=== PATIENT | male | born 1940 | race Two or more races ===

== ENCOUNTER 2020-09-21 09:57 | Outpatient (CLI) | payer OTHER | END 2020-09-21 10:03 | disposition home or self-care (01) | LOC: TOM 09:57 | PROVIDERS: ATTEND Psychiatry & Neurology Clinical Neurophysiology | DX: G93.89 Other specified disorders of brain (principal); I63.39 Cerebral infarction due to thrombosis of other cerebral artery ==

== ENCOUNTER 2020-11-27 16:12 | Emergency (ER) | payer OTHER ==
[~2020-11-27] VITALS: Ht 165.1 cm; Wt 54.4 kg
[2020-11-27] MEDS ORDERED: SERTRALINE HCL50 MG PO (16:30)
[2020-11-27] MEDS ORDERED: SIMVASTATIN40 MG (16:30)
[2020-11-27] MEDS ORDERED: ATENOLOL50 MG (16:30)
[2020-11-27] MEDS ORDERED: LISINOPRIL40 MG (16:30)
[2020-11-27] MEDS ORDERED: EZETIMIBE10 MG PO (16:30)
[2020-11-27] MEDS ORDERED: DONEPEZIL HCL23 MG PO (16:31)
== END 2020-11-27 22:32 | disposition home or self-care (01) ==
LOC: ER 16:12
DX: N39.0 Urinary tract infection, site not specified (principal); E86.0 Dehydration; K52.89 Other specified noninfective gastroenteritis and colitis; Z03.818 Encounter for observation for suspected exposure to other biological agents ruled out

== ENCOUNTER 2022-08-04 10:32 | Emergency (ER) | payer OTHER ==
[~2022-08-04] VITALS: Ht 160 cm; Wt 57.6 kg
[~2022-08-04 10:32] MED LIST: ATENOLOL50 MG; DONEPEZIL HCL23 MG PO; EZETIMIBE10 MG PO; LISINOPRIL40 MG; SERTRALINE HCL50 MG PO; SIMVASTATIN40 MG
[2022-08-04] MEDS ORDERED: CLONAZEPAM0.5 MG PO (10:50)
[2022-08-04] MEDS ORDERED: FOLIC ACID1 MG PO (10:51)
== END 2022-08-04 13:33 | disposition home or self-care (01) ==
LOC: ER 10:32
DX: S43.401A Unspecified sprain of right shoulder joint, initial encounter (principal); W06.XXXA Fall from bed, initial encounter; Y93.9 Activity, unspecified; Y92.013 Bedroom of single-family (private) house as the place of occurrence of the external cause; I10 Essential (primary) hypertension; S00.93XA Contusion of unspecified part of head, initial encounter; S33.9XXA Sprain of unspecified parts of lumbar spine and pelvis, initial encounter

== ENCOUNTER 2023-12-30 14:43 | Emergency (ER) | payer OTHER ==
[~2023-12-30] VITALS: Ht 152.4 cm; Wt 49.9 kg
[~2023-12-30 14:43] MED LIST changes: +CLONAZEPAM0.5 MG PO; +FOLIC ACID1 MG PO
[2023-12-30] MEDS ORDERED: SIMETHICONE 125 MG CAPSULE PO ONE ×2 (17:30→17:45)
[2023-12-30 18:18] LABS: ALBUMIN 3.7 gm/dL (3.4-5.0); BILIRUBIN TOTAL 0.36 mg/dL (0.3-1.2); CALCIUM 8.9 mg/dL (8.5-10.1); CREATININE SERUM 1.06 mg/dL (0.70-1.30); GFR 66.4; GLOBULINA 3.1 G/DL (2.4-3.5); POTASSIUM 4.21 mEq/L (3.5-5.1); TOTAL PROTEIN 6.8 gm/dL (6.4-8.2)
== END 2023-12-30 20:39 | disposition home or self-care (01) ==
LOC: ER 14:43
PROVIDERS: Emergency Medicine
DX: R14.2 Eructation (principal); R14.3 Flatulence; G30.8 Other Alzheimer's disease; F02.80 Dementia in other diseases classified elsewhere, unspecified severity, without behavioral disturbance, psychotic disturbance, mood disturbance, and anxiety; I10 Essential (primary) hypertension; E78.00 Pure hypercholesterolemia, unspecified